=== PATIENT | female | born 1955 | race African-American/Black ===

== ENCOUNTER 2018-02-28 12:22 | Inpatient (IN) | payer BC ==
[~2018-02-28] VITALS: Ht 157.5 cm; Wt 77.1 kg
[2018-02-28 12:46] LABS: BASOPHILS % 2.5 % (0.0-2.0); HEMATOCRIT. 43.6 % (36.0-48.0); HEMOGLOBIN. 14.4 g/dL (12.0-16.0); LYMPHOCYTES % 41.5 % (20.0-50.0); MEAN CORPUSCULAR HEMOGLOBIN 29.8 pg (28.0-32.0); MEAN CORPUSCULAR VOLUME 90.4 fL (81.0-99.0); MEAN PLATELET VOLUME 9.1 fl (7.4-10.4); MONOCYTES % 8.4 % (2.0-8.0); NEUTROPHILS % 42.6 % (40.0-76.0); PLATELET 219 x1000/uL (130-400); RED BLOOD CELL COUNT 4.83 mill/uL (4.2-5.4); RED CELL DISTRIBUTION WIDTH 13.8 % (11.6-14.6)
[2018-02-28 12:50] LABS: CHLORIDE 102 mEq/L (98-107)
[2018-02-28 12:53] LABS: PROTHROMBIN TIME 9.9 sec (9.1-11.1)
[2018-02-28 12:54] LABS: ETHANOL BLOOD < 10 mg/dL
[2018-02-28 12:57] LABS: LDL CHOLESTEROL 125 mg/dL (5-100)
[2018-02-28] MEDS ORDERED: CLONIDINE 0.2MG TABLET PO ONE (13:00)
[2018-02-28 13:51] LABS: CLARITY URINE CLEAR (CLEAR); COLOR URINE YELLOW (YELLOW); KETONES URINE NEGATIVE (NEGATIVE); LEUKOCYTE ESTERASE URINE NEGATIVE (NEGATIVE); NITRITE URINE NEGATIVE (NEGATIVE); OCCULT BLOOD URINE NEGATIVE (NEGATIVE); PROTEIN URINE 1+ (NEGATIVE); UROBILINOGEN URINE 0.2 E.U./dL (0.2-1.0)
[2018-02-28 14:15] LABS: *AMPHETAMINES SCREEN URINE NEGATIVE (NEGATIVE); *BARBITURATES SCREEN URINE NEGATIVE (NEGATIVE); *BENZODIAZEPINES SCREEN URINE NEGATIVE (NEGATIVE); *COCAINE SCREEN URINE NEGATIVE (NEGATIVE)
[2018-02-28 14:16] LABS: CANNABINOID URINE SCREEN NEGATIVE (NEGATIVE); METHADONE URINE SCREEN NEGATIVE (NEGATIVE); OPIATES URINE SCREEN NEGATIVE (NEGATIVE); PHENCYCLIDINE URINE SCREEN NEGATIVE (NEGATIVE)
[2018-02-28] MEDS ORDERED: CLONIDINE 0.1MG TABLET PO PRN (17:15)
[2018-02-28] MEDS ORDERED: DOCUSATE SODIUM 100MG CAPSULE PO PRN (17:15)
[2018-02-28] MEDS ORDERED: TRAMADOL 50MG TABLET PO PRN (17:15)
[2018-02-28] MEDS ORDERED: GUAIFENESIN 200MG/10ML SUGAR FREE UDC PO PRN (17:15)
[2018-02-28] MEDS ORDERED: IPRATROPIUM/ALBUTEROL 0.5-3(2.5)MG/3ML NEB INH PRN (17:15)
[2018-02-28] MEDS ORDERED: ONDANSETRON HCL 4MG/2ML INJ IV PRN (17:15)
[2018-02-28] MEDS ORDERED: NITROGLYCERIN 0.4MG TABLET SL SL PRN (17:15)
[2018-02-28] MEDS ORDERED: NA PHOS,M-B/NA PHOS,DI-BA ENEMA 118ML PR PRN (17:15)
[2018-02-28] MEDS ORDERED: ACETAMINOPHEN 325MG TABLET PO PRN (17:15)
[2018-02-28] MEDS ORDERED: MAGNESIUM/ALUMINUM HYDROXIDE/SIMETHICONE 30ML UDC PO PRN (17:15)
[2018-02-28] MEDS ORDERED: KETOROLAC 15MG/ML VIAL IV PRN (17:15)
[2018-02-28 18:40] VITALS: BP 175/94
[2018-02-28 20:33] VITALS: BP 146/69
[2018-02-28] MEDS ORDERED: LISINOPRIL 20MG TABLET PO SCH (21:00)
[2018-02-28] MEDS: ATORVASTATIN CALCIUM 10MG TABLET PO SCH (21:09)
[2018-02-28] MEDS: METOPROLOL TARTRATE 25MG TABLET PO SCH (21:09)
[2018-02-28] MEDS: ENOXAPARIN 40MG/0.4ML SYR SUBCUT SCH (21:14)
[2018-02-28 22:13] VITALS: BP 146/69
[2018-02-28] MEDS ORDERED: POTA20TA82 PO (22:37)
[2018-02-28] MEDS ORDERED: HYDR-4134 PO (22:37)
[2018-02-28] MEDS ORDERED: CARV6.2548 PO (22:37)
[2018-02-28] MEDS ORDERED: PRAV80TA21 PO (22:37)
[2018-02-28] MEDS ORDERED: HYDR25TA PO (22:37)
[2018-03-01 00:49] VITALS: BP 121/64
[2018-03-01 04:00] VITALS: BP 149/83
[2018-03-01 08:04] VITALS: BP 143/74
[2018-03-01] MEDS: METOPROLOL TARTRATE 25MG TABLET PO SCH (08:39)
[2018-03-01] MEDS: ASPIRIN 325MG EC TABLET PO SCH (08:39)
[2018-03-01] MEDS: PANTOPRAZOLE SODIUM 40 MG/VIAL IV SCH (08:39)
[2018-03-01] MEDS ORDERED: AMLODIPINE 10MG TABLET PO SCH (09:00)
[2018-03-01] MEDS: POTASSIUM CHLORIDE 20MEQ TABLET SR PO SCH (10:28)
[2018-03-01] MEDS: NIFEDIPINE XL 60MG TAB PO SCH (10:28)
[2018-03-01] MEDS: HYDROCHLOROTHIAZIDE 25MG TABLET PO SCH (10:29)
[2018-03-01 12:11] VITALS: BP 159/75
[2018-03-01] MEDS: CARVEDILOL 12.5MG TABLET PO SCH ×2 (12:30→21:12)
[2018-03-01] MEDS: HYDRALAZINE HCL 50MG TABLET PO SCH ×2 (14:17→21:12)
[2018-03-01 15:46] VITALS: BP 105/54
[2018-03-01 20:00] VITALS: BP 114/69
[2018-03-01] MEDS: ENOXAPARIN 40MG/0.4ML SYR SUBCUT SCH (21:12)
[2018-03-01] MEDS: ATORVASTATIN CALCIUM 10MG TABLET PO SCH (21:12)
[2018-03-02] VITALS: BP 108/64
[2018-03-02 04:00] VITALS: BP 118/61
[2018-03-02] MEDS: HYDRALAZINE HCL 50MG TABLET PO SCH (05:07)
[2018-03-02 07:55] VITALS: BP 127/64
[2018-03-02] MEDS: HYDROCHLOROTHIAZIDE 25MG TABLET PO SCH (08:32)
[2018-03-02] MEDS: POTASSIUM CHLORIDE 20MEQ TABLET SR PO SCH (08:32)
[2018-03-02] MEDS: ASPIRIN 325MG EC TABLET PO SCH (08:32)
[2018-03-02] MEDS: PANTOPRAZOLE SODIUM 40 MG/VIAL IV SCH (08:33)
[2018-03-02] MEDS: NIFEDIPINE XL 60MG TAB PO SCH (08:33)
[2018-03-02] MEDS: CARVEDILOL 12.5MG TABLET PO SCH (08:33)
[2018-03-02 11:06] VITALS: BP 120/68
== END 2018-03-02 12:41 | disposition home or self-care (01) | DRG 304 ==
LOC: ER 12:39 → 6WST 16:32 → EDBEDREQTM 16:35 → EDBEDREQSVC 16:35 → EDBEDREQ 16:35 → ENRESERV 16:55
PROVIDERS: ADMIT Internal Medicine; ATTEND Internal Medicine
DX: I16.1 Hypertensive emergency (principal); G93.41 Metabolic encephalopathy; I10 Essential (primary) hypertension; E78.00 Pure hypercholesterolemia, unspecified; Z88.8 Allergy status to other drugs, medicaments and biological substances; Z79.899 Other long term (current) drug therapy; Z91.14 Patient's other noncompliance with medication regimen
CPT/HCPCS: 36415; 70551; 71045; 80061; 80305; 83036; 83721; 83735; 84484; 93005; 93970; 99285; C9113; G0482; J1650; J7620